=== PATIENT | female | born 1960 | race Caucasian/White ===

== ENCOUNTER 2018-06-13 08:30 | Emergency (ER) | payer BC ==
[2018-06-13 08:55] VITALS: BP 148/86
--- NOTE | 2018-06-13 09:31 | UC ---
Complaint Female HPI - HPI Summary HPI Summary: 58 year old female is here with a chief complaint of blood in her urine. Patient's had upper respiratory tract infection symptoms with a sore throat for 4 days. Sore throats improved rhinorrhea is white and clear. 3 days ago she noticed her urine being dark. Today she noticed what appeared be blood in her urine. She does have mild intermittent 2 out of 10 discomfort in the left flank. She's feeling mildly ill. No burning with urination no urgency. - History Of Current Complaint Chief Complaint: UCGeneralIllness Stated Complaint: BODY ACHES, SORE THROAT, URINARY Time Seen by Provider: 06/13/18 08:59 Hx Last Menstrual Period: 2008 Pain Intensity: 0 - Allergies/Home Medications Allergies/Adverse Reactions: Allergies Allergy/AdvReac Type Severity Reaction Status Date / Time No Known Allergies Allergy Verified 06/13/18 08:47 PMH/Surg Hx/FS Hx/Imm Hx Previously Healthy: Yes - Surgical History Surgical History: Yes Surgery Procedure, Year, and Place: tonsillectomy - Family History Known Family History: Positive: Non-Contributory - Social History Alcohol Use: Rare Substance Use Type: None Smoking Status (MU): Never Smoked Tobacco - Immunization History Most Recent Tetanus Shot: unknown Review of Systems All Other Systems Reviewed And Are Negative: Yes Constitutional: Positive: Chills Skin: Positive: Negative Eyes: Positive: Negative ENT: Positive: Sore Throat, Nasal Discharge, Sinus Congestion Respiratory: Positive: Negative Cardiovascular: Positive: Negative Gastrointestinal: Positive: Other - LEFT FLANK DISCOMFORT Genitourinary: Positive: Hematuria. Negative: Dysuria, Frequency, Urgency Motor: Positive: Negative Neurovascular: Positive: Negative Musculoskeletal: Positive: Negative Neurological: Positive: Negative Psychological: Positive: Negative Is Patient Immunocompromised?: No Physical Exam Triage Information Reviewed: Yes Appearance: Well-Appearing, No Pain Distress, Well-Nourished Vital Signs: Initial Vital Signs Temp 98.1 F 06/13/18 08:48 Pulse 104 06/13/18 08:48 Resp 18 06/13/18 08:48 BP 148/86 06/13/18 08:48 Pulse Ox 100 06/13/18 08:48 Vital Signs Reviewed: Yes Eye Exam: Normal Eyes: Positive: Conjunctiva Clear ENT: Positive: Pharyngeal erythema, Nasal congestion, TMs normal Neck exam: Normal Neck: Positive: Supple Respiratory: Positive: Lungs clear, Normal breath sounds, No respiratory distress Cardiovascular: Positive: RRR Abdomen Description: Positive: Nontender, CVA Tenderness (L) - MIONIMAL TO PERCUSSION. Negative: CVA Tenderness (R) Musculoskeletal Exam: Normal Musculoskeletal: Positive: Strength Intact Neurological Exam: Normal Neurological: Positive: Alert, Muscle Tone Normal Psychological Exam: Normal Psychological: Positive: Age Appropriate Behavior Skin Exam: Normal Complaint Female Dx - Course Course Of Treatment: Patient has had upper respiratory tract infection symptoms to include a sore throat for 4 days. And dark urine for 3 days. Her urine today shows blood and protein and nitrites. Does not show leukocyte esterase. She denies symptoms of a urinary tract infection. This brings up the possibility of strep glomerulonephritis. I will treat with Augmentin to cover for strep infection and possible UTI. Her checking an ASO CRP CBC CMP and urine culture and a rapid strep pharyngeal swab. The rapid strep in clinic was negative which decreases the chance of strep glomerulonephritis. I discussed all this with the patient and she knows that if she does not improve completely or worsens she needs to reevaluated right away preferably in the emergency department. - Differential Dx/Diagnosis Provider Diagnosis: Hematuria, Pharyngitis Discharge - Sign-Out/Discharge Documenting (check all that apply): Patient Departure All imaging exams completed and their final reports reviewed: No Studies - Discharge Plan Condition: Stable Disposition: HOME Prescriptions: Amoxicillin/Clavulanate TAB* [Augmentin TAB 875*] 875 mg PO BID #20 tab Patient Education Materials: Pharyngitis (ED), Hematuria (ED) Referrals: [facility] [Outside] Additional Instructions: FOLLOW UP WITH YOUR DOCTOR IF NOT COMPLETELY IMPROVED. WE HAVE CHECKED BLOOD WORK TO CHECK FOR THE POSSIBILITY OF STREP GLOMERULONEPHRITIS. THE URINE CULTURE IS ALSO PENDING. THESE RESULTS ARE PENDING. GO TO THE EMERGENCY DEPARTMENT FOR ANY WORSENING OF YOUR CONDITION; PAIN, CONTINUED OR WORSE BLOOD IN YOUR URINE, YOU FEEL ILL OR QUESTIONS OR CONCERNS. - Billing Disposition and Condition Condition: STABLE Disposition: Home
[2018-06-13 13:48] LABS: ABS Basophils 0.1 10^3/ul (0-0.2); ABS Eosinophils 0.2 10^3/ul (0-0.6); ABS Lymphocytes 1.6 10^3/ul (1.0-4.8); ABS Monocytes 0.8 10^3/ul (0-0.8); ABS Neutrophils 7.3 10^3/ul (1.5-7.7); ABS Nucleated RBC 0 10^3/ul; Eosinophil % 1.6 %; Hematocrit 39 % (35-47); Hemoglobin 13.5 g/dl (12.0-16.0); Lymphocyte % 15.9 %; Mean Corpuscular HGB Conc 35 g/dl (31-36); Mean Corpuscular Hemoglobin 28 pg (27-31); Mean Corpuscular Volume 82 fL (80-97); Nucleated Red Blood Cells % 0.1; Platelet Count 149 10^3/ul (150-450); Red Blood Count 4.77 10^6/ul (4.00-5.40); Red Cell Distribution Width 13 % (10.5-15); White Blood Count 9.9 10^3/ul (3.5-10.8)
[2018-06-13 13:53] LABS: Albumin 4.3 g/dL (3.2-5.2); Calcium 9.4 mg/dL (8.6-10.3); Potassium 3.7 mmol/L (3.5-5.0); Total Bilirubin 0.6 mg/dL (0.2-1.0)
[2018-06-13 13:59] LABS: Albumin/Globulin Ratio 1.7 (1-3); BUN/Creatinine Ratio 18.9 (8-20); C Reactive Protein 42.87 mg/L (<8.01); EGFR Non-African American 53.6 (>60); Globulin 2.6 g/dL (2-4); Total Protein 6.9 g/dL (6.4-8.9)
== END 2018-06-13 09:50 | disposition home or self-care (01) ==
LOC: UCCORT 08:30
DX: R31.9 Hematuria, unspecified (principal); J02.9 Acute pharyngitis, unspecified
CPT/HCPCS: 36415; 80053; 81003; 85025; 86060; 86140; 87086; 87651; 99202; G0463